=== PATIENT | female | born 1990 | race Caucasian/White ===

== ENCOUNTER 2022-01-13 07:54 | Emergency (ER) | payer BC, OTHER ==
[2022-01-13 08:05] VITALS: BP 109/70; PULSE 60; TEMP 98; BMI 23.0
[2022-01-13] MEDS ORDERED: MAG HYDROX/AL HYDROX/SIMETH -MYLANTA- ORAL SUSPENSION PO ONE (08:08)
[2022-01-13] MEDS ORDERED: FAMOTIDINE 20 MG/50 ML IVPB 20 MG in PREMIX 50 IVPB ONE (08:08)
[2022-01-13] MEDS ORDERED: FAMOTIDINE 20 MG/50 ML IVPB 20 MG/50 ML MG IVPB ONE (08:26)
[2022-01-13] MEDS ORDERED: MAG HYDROX/AL HYDROX/SIMETH 30 ML UNIT-DOSE CUP ONE (08:26)
[2022-01-13 09:00] LABS: HCG,QUALITATIVE URINE Negative
[2022-01-13 09:08] LABS: HEMATOCRIT 34.2 % (32.4-45.2); HEMOGLOBIN 11.3 G/dL (10.7-15.3); MCH 27.7 pg (25.7-33.7); MCHC 33.2 g/dl (32.0-36.0); MEAN CELL VOLUME 83.4 fl (80-96); MEAN PLT VOLUME 8.1 fl (7.5-11.1); PLATELET COUNT 288.5 10^3/uL (134-434); WHITE BLOOD COUNT 5.5 10^3/uL (4.0-10.8)
[2022-01-13 09:17] LABS: ALBUMIN 3.9 g/dl (3.4-5.0); BILIRUBIN,TOTAL 1.1 mg/dl (0.2-1); CALCIUM 9.3 mg/dl (8.5-10); CREATININE 0.7 mg/dl (0.55-1.3); TOT PROT 6.9 g/dl (6.4-8.2)
[2022-01-13 10:09] LABS: EPITHELIAL CELLS MANY /hpf
[2022-01-13 11:05] LABS: SYPHILIS W/ RPR CONF NON-REACTIVE (NONREACTIVE)
[2022-01-13] MEDS ORDERED: KETOROLAC TROMETHAMINE 30 MG/1 ML VIAL IVPUSH ONE (11:31)
[2022-01-13 11:33] LABS: HIV INTERPRETATION NEGATIVE (NEGATIVE)
[2022-01-13] MEDS ORDERED: KETOROLAC TROMETHAMINE 30 MG/1 ML VIAL ONE (11:40)
[2022-01-13] MEDS ORDERED: METHOCARBAMOL 500 MG TABLET PO ONE (12:43)
[2022-01-13] MEDS ORDERED: METHOCARBAMOL 500 MG TABLET ONE (12:44)
== END 2022-01-13 13:02 | disposition home or self-care (01) ==
LOC: FER 07:54
PROC: 3E033GC Introduction of Other Therapeutic Substance into Peripheral Vein, Percutaneous Approach (ICD-10-PCS; principal; 2022-01-13)
PROC: 3E0333Z Introduction of Anti-inflammatory into Peripheral Vein, Percutaneous Approach (ICD-10-PCS; 2022-01-13)
DX: R10.13 Epigastric pain (principal)
CPT/HCPCS: 36415; 76705-TC; 80053; 81003; 81015; 83690; 84703; 85027; 86780; 87077; 87086; 87389; 87491; 87591; 99284-25

== ENCOUNTER 2024-07-28 09:19 | Emergency (ER) | payer OTHER, BC ==
[2024-07-28 09:47] VITALS: BP 115/72; PULSE 62; RESP 16; TEMP 98.3; BMI 23.8
[2024-07-28] MEDS ORDERED: IBUPROFEN 400 MG TABLET (FP) PO ONE (11:01)
[2024-07-28] MEDS ORDERED: ACETAMINOPHEN 500 MG TABLET (FP) ONE (11:01)
[2024-07-28] MEDS: ACETAMINOPHEN 1000 MG/100 ML BAG IVPB ONE (11:05)
[2024-07-28] MEDS: IBUPROFEN 400 MG TABLET (FP) PO ONE (11:05)
[2024-07-28] MEDS: ACETAMINOPHEN 500 MG TABLET (FP) PO ONE (11:07)
== END 2024-07-28 13:01 | disposition home or self-care (01) ==
LOC: JERFT 09:19
DX: S96.911A Strain of unspecified muscle and tendon at ankle and foot level, right foot, initial encounter (principal); M25.551 Pain in right hip; M54.6 Pain in thoracic spine; W08.XXXA Fall from other furniture, initial encounter
CPT/HCPCS: 73502-TC-RT-FY; 73610-TC-RT-FY; 99284-25

== ENCOUNTER 2025-02-23 15:46 | Emergency (ER) | payer BC ==
[2025-02-23 15:51] VITALS: BP 109/66; PULSE 74; RESP 15; TEMP 98.2; BMI 26.5
[2025-02-23 16:15] LABS: ABSOLUTE IMMATURE GRANULOCYTES 0.02 x10^3/uL (0.0-0.031); BASOPHILS # 0.04 x10^3/uL (0.01-0.08); EOSINOPHIL % 2.9 % (0.7-5.8); EOSINOPHILS # 0.21 x10^3/uL (0.04-0.36); MCHC 31.0 g/dl (32.2-35.5); MEAN CELL VOLUME 90.0 fl (79.4-94.8); MEAN PLT VOLUME 9.6 fl (9.4-12.3); MONOCYTE # 0.57 x10^3/uL (0.24-0.86); MONOCYTE % 8.0 % (4.7-12.5); RDW 12.3 % (12.1-16.8)
[2025-02-23] MEDS ORDERED: ONDANSETRON *ODT* 4 MG TABLET ONE (16:26)
[2025-02-23] MEDS: ONDANSETRON 4 MG TABLET PO ONE (16:27)
[2025-02-23 16:35] LABS: EPITHELIAL CELLS 1+ /hpf
[2025-02-23 20:07] LABS: HIV INTERPRETATION NEGATIVE (NEGATIVE)
== END 2025-02-23 16:37 | disposition home or self-care (01) ==
LOC: FER 15:46
DX: K64.4 Residual hemorrhoidal skin tags (principal); K62.5 Hemorrhage of anus and rectum; R53.1 Weakness; R11.0 Nausea; R10.9 Unspecified abdominal pain
CPT/HCPCS: 36415; 81003; 81015; 84703; 85025; 86803; 87389; 99283-25